=== PATIENT | male | born 1940 | race Caucasian/White ===

== ENCOUNTER 2018-10-06 10:27 | Emergency (ER) | payer MEDICARE ==
[2018-10-06] MEDS ORDERED: ACETAMINOPHEN-CODEINE 300/30MG TAB ONE (10:55)
== END 2018-10-06 12:41 | disposition home or self-care (01) ==
LOC: EDH 10:27
DX: S93.432A Sprain of tibiofibular ligament of left ankle, initial encounter (principal); I10 Essential (primary) hypertension; J45.909 Unspecified asthma, uncomplicated; M06.9 Rheumatoid arthritis, unspecified; X58.XXXA Exposure to other specified factors, initial encounter; Y93.01 Activity, walking, marching and hiking; Y92.098 Other place in other non-institutional residence as the place of occurrence of the external cause; Y99.8 Other external cause status
CPT/HCPCS: 73610; 73630